=== PATIENT | male | born 1955 | race Caucasian/White ===

== ENCOUNTER 2023-06-05 06:04 | Day surgery (SDC) | payer OTHER ==
[2023-05-22 15:06] VITALS: BMI 25.1
[2023-06-05] MEDS ORDERED: ACETAMINOPHEN 325 MG TABLET (FP) PO PRN (07:06)
[2023-06-05] MEDS ORDERED: oxyCODONE HCL 5 MG TABLET PO PRN (07:06)
[2023-06-05] MEDS ORDERED: ONDANSETRON 4 MG/2 ML VIAL IVPUSH PRN (07:06)
[2023-06-05] MEDS ORDERED: LACTATED RINGERS SOLUTION 1,000 ML IV SCH (07:15)
[2023-06-05] MEDS ORDERED: MIDAZOLAM HCL 2 MG/2 ML SINGLE DOSE VIAL ONE (07:18)
[2023-06-05] MEDS ORDERED: ACETAMINOPHEN INJECTION 100 ML IVPB ONE (07:19)
[2023-06-05] MEDS ORDERED: ROPIVACAINE HCL 0.5% 30ML VIAL ONE (07:19)
[2023-06-05] MEDS ORDERED: BUPIVACAINE HCL/EPINEPHRINE/PF 30 ML VIAL IJ ONE (07:21)
[2023-06-05] MEDS ORDERED: TRANEXAMIC ACID 1000 MG/10 ML VIAL ONE (07:48)
[2023-06-05] MEDS ORDERED: DEXAMETHASONE SOD PHOSPHATE 4 MG/1 ML VIAL ONE (07:48)
[2023-06-05] MEDS ORDERED: ONDANSETRON 4 MG/2 ML VIAL ONE (07:48)
[2023-06-05] MEDS ORDERED: ceFAZolin SODIUM 1 GM VIAL ONE (07:48)
[2023-06-05] MEDS ORDERED: PROPOFOL 20 ML ONE ×2 (07:53→08:40)
[2023-06-05] MEDS: BUPIVACAINE 0.25% /EPI 1:200,000 10 ML VIAL NR ONE (08:10)
[2023-06-05 09:47] VITALS: TEMP 97.5
[2023-06-05 11:05] VITALS: RESP 18
[2023-06-05 11:06] VITALS: BP 112/61; PULSE 67
== END 2023-06-05 11:00 | disposition home or self-care (01) ==
LOC: FASU 06:04
PROVIDERS: ATTEND Orthopaedic Surgery
PROC: 0RNJ4ZZ Release Right Shoulder Joint, Percutaneous Endoscopic Approach (ICD-10-PCS; principal; 2023-06-05 08:10)
PROC: 0RBJ4ZZ Excision of Right Shoulder Joint, Percutaneous Endoscopic Approach (ICD-10-PCS; 2023-06-05 08:10)
DX: M75.121 Complete rotator cuff tear or rupture of right shoulder, not specified as traumatic (principal)
CPT/HCPCS: 94760; C1713; J0131